=== PATIENT | female | born 1985 | race American Indian/Alaskan Native ===

== ENCOUNTER 2017-09-06 13:44 | Emergency (ER) | payer SELFPAY ==
[2017-09-06 14:02] VITALS: BP 131/86
[2017-09-06] MEDS ORDERED: MORPHINE IM ONE (14:48)
[2017-09-06] MEDS ORDERED: CLEOCIN IM ONE (14:48)
--- NOTE | 2017-09-06 14:51 | Emergency Department Report ---
HPI - General Chief Complaint: Dental/Oral - HPI HPI: 32-year-old -[place] female with left lower mandibular area pain, stated left lower wisdom tooth area discomfort, swelling. Symptoms have been going on for 2 days but worse today. Patient is not taking any medications for her symptoms. The patient has not yet seen a dentist for her symptoms. ED Past Medical Hx - Past Medical History Previous Medical History?: No Hx CVA: No - Surgical History Past Surgical History?: No - Social History Smoking Status: Current Every Day Smoker Substance Use Type: Alcohol - Medications Home Medications: Home Medications Medication Instructions Recorded Confirmed Last Taken Type Amoxicillin [Amoxicillin TAB] 875 mg PO BID #20 tablet 09/06/17 Unknown Rx Clindamycin [Clindamycin CAP] 150 mg PO Q8HR #21 capsule 09/06/17 Unknown Rx traMADol [Ultram] 50 mg PO Q6HR PRN #15 tablet 09/06/17 Unknown Rx ED Review of Systems ROS: Stated complaint: TOOTHACHE Other details as noted in HPI Comment: All other systems reviewed and negative ENT: throat pain, dental pain Physical Exam - Physical Exam Vital Signs: Vital Signs 09/06/17 13:59 Temperature 98.7 F Pulse Rate 85 Respiratory 18 Rate Blood Pressure 131/86 O2 Sat by Pulse 100 Oximetry Physical Exam: - Physical Exam Physical Exam: - General Limitations: No Limitations General appearance: alert, in no apparent distress. - Head Head exam: Present: atraumatic, normocephalic - Eye Eye exam: Present: normal appearance - ENT ENT exam: Present: mucous membranes moist Anterior cervical lymphadenopathy., Left lower mandibular swelling, left lower wisdom tooth area abscess. - Neck Neck exam: Present: normal inspection - Respiratory Respiratory exam: Present: normal lung sounds bilaterally. Absent: respiratory distress - Cardiovascular Cardiovascular Exam: Present: normal rhythm. Absent: systolic murmur, diastolic murmur, rubs, gallop - GI/Abdominal GI/Abdominal exam: Present: soft, normal bowel sounds - Extremities Exam Extremities exam: Present: normal inspection - Back Exam Back exam: Present: normal inspection - Neurological Exam Neurological exam: Present: alert, oriented X3 - Psychiatric Psychiatric exam: normal affect and mood - Skin Skin exam: Present: warm, dry, intact, normal color. Absent: rash ED Course Vital Signs 09/06/17 13:59 Temperature 98.7 F Pulse Rate 85 Respiratory 18 Rate Blood Pressure 131/86 O2 Sat by Pulse 100 Oximetry Critical care attestation.: If time is entered above; I have spent that time in minutes in the direct care of this critically ill patient, excluding procedure time. ED Disposition Clinical Impression: Dental abscess Disposition: DC-01 TO HOME OR SELFCARE Is pt being admited?: No Does the pt Need Aspirin: No Condition: Stable Instructions: Dental Abscess (ED) Prescriptions: Amoxicillin [Amoxicillin TAB] 875 mg PO BID #20 tablet Clindamycin [Clindamycin CAP] 150 mg PO Q8HR #21 capsule traMADol [Ultram] 50 mg PO Q6HR PRN #15 tablet PRN Reason: Pain Referrals: PRIMARY CARE, [Primary Care Provider] - 3-5 Days
[2017-09-06] MEDS ORDERED: TORADOL ONE (15:00)
[2017-09-06] MEDS ORDERED: TORADOL IM ONE (15:01)
== END 2017-09-06 15:16 | disposition home or self-care (01) ==
LOC: ED 13:44
DX: K04.7 Periapical abscess without sinus (principal); F17.200 Nicotine dependence, unspecified, uncomplicated
CPT/HCPCS: 96372; 99282; J1885; J2270

== ENCOUNTER 2018-11-07 09:44 | Emergency (ER) | payer OTHER ==
[2018-11-07 09:53] VITALS: BP 144/99
[2018-11-07] MEDS ORDERED: DELTASONE PO ONE (10:12)
[2018-11-07] MEDS ORDERED: TORADOL IM ONE (10:12)
--- NOTE | 2018-11-07 10:52 | XRay Report ---
Cervical spine-3 views INDICATION: neck pain. Acute generalized neck pain for the past 3 days COMPARISON: None. IMPRESSION: Normal alignment. Very mild mid to lower cervical discogenic DJD and facet arthropathy. No acute osseous or soft tissue abnormality. Signer Name: Clint Ibarra MD Signed: 11/07/2018 10:47 AM Workstation Name: [id number]
--- NOTE | 2018-11-07 10:52 | XRay Report ---
Left shoulder-3 views INDICATION: Generalized left shoulder pain for the past 3 days. COMPARISON: None. IMPRESSION: No acute osseous or soft tissue abnormality. No significant DJD. Signer Name: Clint Ibarra MD Signed: 11/07/2018 10:48 AM Workstation Name: [id number]
--- NOTE | 2018-11-07 10:55 | Emergency Department Report ---
ED Neck Pain/Injury HPI - General Chief Complaint: Extremity Injury, Upper Stated Complaint: L SIDE PAIN Time Seen by Provider: 11/07/18 10:06 Mode of arrival: Ambulatory Limitations: No Limitations - History of Present Illness Initial Comments: This is a 33-year-old female nontoxic, well nourished in appearance, no acute signs of distress presents to the ED with c/o of left sided upper back pain with radiation to left arm. 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 Patient denies any trauma. Denies any bladder or bowel instability. Patient denies any urinary symptoms. Denies any fever, chills, nausea, vomiting, headache, stiff neck, chest pain or shortness of breath. Patient denies any numbness or tingling. The allergies to acetaminophen and meperidine. Denies significant PMH. MD Complaint: upper back pain -: days(s) (2) Place: work Radiation: left upper extremity Severity: mild Severity scale (0 -10): 8 Quality: aching Consistency: intermittent Improves With: immobilization Worsens With: movement of extremity, movement of neck Associated Symptoms: none. denies: headache, fever, numbness, tingling, weakness, vertigo, difficulty walking, swollen glands, difficulty swallowing, nausea, vomiting - Related Data Previous Rx's Medication Instructions Recorded Last Taken Type Amoxicillin [Amoxicillin TAB] 875 mg PO BID #20 tablet 09/06/17 Unknown Rx Clindamycin [Clindamycin CAP] 150 mg PO Q8HR #21 capsule 09/06/17 Unknown Rx traMADol [Ultram] 50 mg PO Q6HR PRN #15 tablet 09/06/17 Unknown Rx Antacid [Alum-Mag Hydrox-Simeth 15 ml PO TID #120 ml 03/08/18 Unknown Rx [id number]/5Ml] Dicyclomine [Bentyl] 10 mg PO BID #50 ml 03/08/18 Unknown Rx Ondansetron [Zofran Odt] 4 mg PO TID #20 tab.rapdis 03/08/18 Unknown Rx Cyclobenzaprine [Flexeril] 10 mg PO QHS PRN #10 tablet 11/07/18 Unknown Rx Ibuprofen [Motrin] 600 mg PO Q8H PRN #20 tablet 11/07/18 Unknown Rx Allergies Allergy/AdvReac Type Severity Reaction Status Date / Time acetaminophen Allergy Swelling Verified 09/06/17 13:59 meperidine [From Demerol] Allergy Anaphylaxis Verified 11/07/18 09:55 ED Review of Systems ROS: Stated complaint: L SIDE PAIN Other details as noted in HPI Constitutional: denies: chills, fever Eyes: denies: eye pain, eye discharge, vision change ENT: denies: ear pain, throat pain Respiratory: denies: cough, shortness of breath, wheezing Cardiovascular: denies: chest pain, palpitations Endocrine: no symptoms reported Gastrointestinal: denies: abdominal pain, nausea, diarrhea Genitourinary: denies: urgency, dysuria, discharge Musculoskeletal: arthralgia. denies: back pain, joint swelling Skin: denies: rash, lesions Neurological: denies: headache, weakness, paresthesias Psychiatric: denies: anxiety, depression Hematological/Lymphatic: denies: easy bleeding, easy bruising ED Past Medical Hx - Past Medical History Previous Medical History?: Yes Hx CVA: No Additional medical history: hx of anemia, sickle cell trait. - Surgical History Hx Cholecystectomy: Yes Additional Surgical History: C section - Social History Smoking Status: Current Every Day Smoker Substance Use Type: Alcohol, Marijuana - Medications Home Medications: Home Medications Medication Instructions Recorded Confirmed Last Taken Type Amoxicillin [Amoxicillin TAB] 875 mg PO BID #20 tablet 09/06/17 Unknown Rx Clindamycin [Clindamycin CAP] 150 mg PO Q8HR #21 capsule 09/06/17 Unknown Rx traMADol [Ultram] 50 mg PO Q6HR PRN #15 tablet 09/06/17 Unknown Rx Antacid [Alum-Mag Hydrox-Simeth 15 ml PO TID #120 ml 03/08/18 Unknown Rx [id number]/5Ml] Dicyclomine [Bentyl] 10 mg PO BID #50 ml 03/08/18 Unknown Rx Ondansetron [Zofran Odt] 4 mg PO TID #20 tab.rapdis 03/08/18 Unknown Rx Cyclobenzaprine [Flexeril] 10 mg PO QHS PRN #10 tablet 11/07/18 Unknown Rx Ibuprofen [Motrin] 600 mg PO Q8H PRN #20 tablet 11/07/18 Unknown Rx ED Physical Exam - General Limitations: No Limitations General appearance: alert, in no apparent distress - Head Head exam: Present: atraumatic, normocephalic - Neck Neck exam: Present: normal inspection. Absent: tenderness, lymphadenopathy - Extremities Exam Extremities exam: Present: normal inspection, full ROM, normal capillary refill. Absent: tenderness - Back Exam Back exam: Present: normal inspection, full ROM, paraspinal tenderness (left sided cervicalparaspinal). Absent: tenderness, CVA tenderness (R), CVA tenderness (L), muscle spasm, vertebral tenderness, rash noted - Neurological Exam Neurological exam: Present: alert, oriented X3, normal gait - Psychiatric Psychiatric exam: Present: normal affect, normal mood - Skin Skin exam: Present: warm, dry, intact, normal color. Absent: rash ED Course Vital Signs 11/07/18 09:50 Temperature 97.9 F Pulse Rate 70 Respiratory 18 Rate Blood Pressure 144/99 O2 Sat by Pulse 100 Oximetry - Reevaluation(s) Reevaluation #1: 11/07/18 10:57 Patient is speaking in full sentences with no signs of distress noted. ED Medical Decision Making - Medical Decision Making This is a 33-year-old female that presents with left arm strain and cervical radiculopathy. Patient is stable was examined by me. X-rays are unremarkable and dictated by radiologist. There is no spinal tenderness. There is no cauda equina syndrome during examination. No bladder or bowel instability. Patient received Toradol 60 mg IM and prednisone in the ED which stated that her symptoms has resolved and subsided. Patient is discharged with muscle relaxant and Motrin. Patient was instructed not to operate any machinery while taking muscle relaxant as they cause her drowsiness. Patient was referred to Follow-up with a primary care doctor in 3-5 days or if symptoms worsen and continue return to emergency room as soon as possible. At time of discharge, the patient does not seem toxic or ill in appearance. No acute signs of distress noted. Patient agrees to discharge treatment plan of care. No further questions noted by the patient. This chart is dictated with using [employer] Dictation Program Critical care attestation.: If time is entered above; I have spent that time in minutes in the direct care of this critically ill patient, excluding procedure time. ED Disposition Clinical Impression: Cervical radiculopathy Muscle strain of left upper arm Qualifiers: Encounter type: initial encounter Qualified Code(s): S46.912A - Strain of unspecified muscle, fascia and tendon at shoulder and upper arm level, left arm, initial encounter Disposition: DC-01 TO HOME OR SELFCARE Is pt being admited?: No Does the pt Need Aspirin: No Condition: Stable Instructions: Muscle Strain (ED), Cyclobenzaprine (By mouth) Additional Instructions: Follow-up with your primary care doctor in 3-5 days or if symptoms worsen such as bladder or bowel stability, chest pain, short of breath, numbness or tingling sensation in extremities, headache, dizziness, visual changes, nausea vomiting, or abdominal pain, return back to emergency room as was possible. Take ibuprofen and Flexeril as prescribed. Do not operate heavy machinery while taking Flexeril due to sedation Prescriptions: Cyclobenzaprine [Flexeril] 10 mg PO QHS PRN #10 tablet PRN Reason: Muscle Spasm Ibuprofen [Motrin] 600 mg PO Q8H PRN #20 tablet PRN Reason: Pain Referrals: PRIMARY CARE, [Referring] - 3-5 Days TAWANDA MIRANDA MD [Staff Physician] - 3-5 Days [facility] [Outside] - 3-5 Days [facility] [Outside] - 3-5 Days Forms: Work/School Release Form(ED)
== END 2018-11-07 11:33 | disposition home or self-care (01) ==
LOC: ED 09:44
DX: S46.912A Strain of unspecified muscle, fascia and tendon at shoulder and upper arm level, left arm, initial encounter (principal); M54.12 Radiculopathy, cervical region; F17.200 Nicotine dependence, unspecified, uncomplicated; F12.10 Cannabis abuse, uncomplicated; Z88.6 Allergy status to analgesic agent; Z88.5 Allergy status to narcotic agent; X58.XXXA Exposure to other specified factors, initial encounter; Y93.89 Activity, other specified; Y92.89 Other specified places as the place of occurrence of the external cause; Y99.8 Other external cause status
CPT/HCPCS: 72040; 73030; 96372; 99283; J1885; J7512

== ENCOUNTER 2019-01-05 20:16 | Emergency (ER) | payer OTHER ==
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
[2019-01-05 22:48] LABS: Basophils # (Auto) 0.1 K/mm3 (0.0-0.1); Basophils % (Auto) 1.4 % (0.0-1.8); Eosinophils # (Auto) 0.1 K/mm3 (0.0-0.4); Eosinophils % (Auto) 1.1 % (0.0-4.3); Hematocrit 27.8 % (30.3-42.9); Hemoglobin 9.1 gm/dl (10.1-14.3); Lymphocytes # (Auto) 3.3 K/mm3 (1.2-5.4); Lymphocytes % (Auto) 32.8 % (13.4-35.0); Mean Corpuscular HGB Conc 33 % (30-34); Monocytes # (Auto) 0.6 K/mm3 (0.0-0.8); Monocytes % (Auto) 5.6 % (0.0-7.3); Platelet Count 400 K/mm3 (140-440); Red Blood Count 4.17 M/mm3 (3.65-5.03); Red Cell Distribution Width 17.1 % (13.2-15.2)
[2019-01-05 22:51] LABS: Mean Corpuscular Volume 67 fl (79-97)
[2019-01-05] MEDS ORDERED: FLEXERIL PO ONE (23:05)
[2019-01-05] MEDS ORDERED: IBUPROFEN PO ONE (23:05)
[2019-01-05 23:16] LABS: BUN/Creatinine Ratio 17; Blood Urea Nitrogen 12 mg/dL (7-17); Calcium 9.2 mg/dL (8.4-10.2); Hemolysis Index 4
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
[2019-01-06 01:22] VITALS: BP 138/76
== END 2019-01-06 01:25 | disposition home or self-care (01) ==
LOC: ED 20:16
DX: S39.012A Strain of muscle, fascia and tendon of lower back, initial encounter (principal); S83.92XA Sprain of unspecified site of left knee, initial encounter; D64.9 Anemia, unspecified; D57.3 Sickle-cell trait; F17.200 Nicotine dependence, unspecified, uncomplicated; Z90.49 Acquired absence of other specified parts of digestive tract; Z98.51 Tubal ligation status; Z79.899 Other long term (current) drug therapy; Z88.8 Allergy status to other drugs, medicaments and biological substances; V49.59XA Passenger injured in collision with other motor vehicles in traffic accident, initial encounter; Y93.89 Activity, other specified; Y92.410 Unspecified street and highway as the place of occurrence of the external cause; Y99.8 Other external cause status
CPT/HCPCS: 36415; 72100; 80048; 84703; 85025

== ENCOUNTER 2021-09-24 08:16 | Emergency (ER) | payer SELFPAY ==
[2021-09-24 08:24] VITALS: BP 142/76
== END 2021-09-24 11:00 | disposition left against medical advice (07) ==
LOC: ED 08:16
DX: R11.2 Nausea with vomiting, unspecified (principal); R19.7 Diarrhea, unspecified; Z53.21 Procedure and treatment not carried out due to patient leaving prior to being seen by health care provider